=== PATIENT | female | born 1960 | race Caucasian/White ===

== ENCOUNTER 2023-10-30 15:02 | Emergency (ER) | payer OTHER, SELFPAY ==
[2023-10-30 15:06] VITALS: BP 141/81; PULSE 88; RESP 18; TEMP 36.2; O2SAT 99
--- NOTE | 2023-10-30 16:49 | ED.DIZZY ---
HPI - Dizziness General Chief Complaint: Dizziness Stated Complaint: VERTIGO, NAUSEA,EMESIS Time Seen by Provider: 10/30/23 16:49 Focused HPI: Milagros is a 63-year-old female patient presenting to the emergency room today with complaints of dizziness, nausea, and vomiting. She reports she was recently diagnosed with vertigo and given prescription for meclizine. States she tried taking the meclizine but vomited shortly afterwards and this prompted her to come into the emergency room. Reports that she get dizzy with the room spinning 20 minutes prior to arrival to the emergency room-at the time of MSE each triage she was reporting some improvement of dizziness and walked around the exam room. Offer to do a workup for dizziness however patient just had this done 1 month ago and has following up with her PCP regarding the vertigo. She states that her CT head, EKG and blood work were all within normal limits at the [facility] emergency room. Denies ALCANTAR or photosensitivity. Shared decision making was used and patient decline having any workup done in the emergency room today. She would like to receive a meclizine dose and Zofran here in the ER and be discharged home. General: Well-developed, well nourished, in no apparent distress Head: Normocephalic, atraumatic Eyes: Pupils equally round and reactive to light bilaterally, EOM intact, sclera and conjunctive clear, no discharge, lids normal, no nystagmus Ears: TMs intact and clear, ear canals clear, no drainage, grossly hearing normal. Nose: Nares patent, no discharge, no inflammation, no sinus tenderness. Mouth: Oropharynx without lesions or masses, good dentition, MMM. Tongue midline, even rise and fall of uvula Neck: Supple, trachea midline, no enlargement of anterior or posterior cervical nodes, no thyroid masses or goiter palpable. Cardio: Regular rate and rhythm, s1 and s2 normal, no murmur appreciated. Resp: Clear to auscultation bilaterally anteriorly and posteriorly, no rhonchi, rales, wheezing or rubs Musculoskeletal: No deformity, non-tender to palpation, grossly normal range of motion, muscle strength strong and equal, peripheral pulse strong, no edema, no cyanosis, normal gait and station Neuro: Alert and oriented x4 with normal speech, no focal deficits, cranial nerves I through XII intact, muscle strength 5 out of 5, sensation intact bilaterally, Patient screened in triage and initial orders placed. Additional care and disposition to be based upon diagnostic testing and treatment. Source: patient Mode of arrival: ambulatory Limitations: no limitations Review of Systems Review of Systems: Pertinent positives per HPI. Patient denies any fever, chills, rash, headache, visual changes, cough, runny nose, sore throat, shortness of breath, chest pain, palpitations, nausea, vomiting, diarrhea, constipation, abdominal pain, or any urinary issues. PMFSH Comments At the time of my signature, I reviewed and agree with the nursing past medical, surgical, social, and family history. There is no relevant family history pertinent to the patient complaint. Exam Narrative: General: Well-developed, well nourished, in no apparent distress Head: Normocephalic, atraumatic Eyes: Pupils equally round and reactive to light bilaterally, EOM intact, sclera and conjunctive clear, no discharge, lids normal, no nystagmus Ears: TMs intact and clear, ear canals clear, no drainage, grossly hearing normal. Nose: Nares patent, no discharge, no inflammation, no sinus tenderness. Mouth: Oropharynx without lesions or masses, good dentition, MMM. Tongue midline, even rise and fall of uvula Neck: Supple, trachea midline, no enlargement of anterior or posterior cervical nodes, no thyroid masses or goiter palpable. Cardio: Regular rate and rhythm, s1 and s2 normal, no murmur appreciated. Resp: Clear to auscultation bilaterally anteriorly and posteriorly, no rhonchi, rales, wheezing or rubs Mu
[2023-10-30] MEDS: MECLIZINE HCL 25 MG TABLET PO (17:10)
[2023-10-30] MEDS: ONDANSETRON HCL ODT 4 MG TABLET PO (17:10)
[2023-10-30 17:26] VITALS: BP 151/76; PULSE 80; RESP 20; TEMP 36.6; O2SAT 99
== END 2023-10-30 17:50 | disposition home or self-care (01) ==
PROVIDERS: Emergency Provider Nurse Practitioner Family
DX: R42 Dizziness and giddiness (principal)
CPT/HCPCS: 99283; A9270